=== PATIENT | female | born 2000 | race Caucasian/White ===

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

== ENCOUNTER → 2019-01-13 | Outpatient (CLI) | payer OTHER ==
[~2019-01-13] MED LIST changes: +IBUP1TAB7 PO; +IBUP80TA PO; +OXYC1TAB23 PO
== END ==
LOC: M LAB 07:32
PROVIDERS: ATTEND Advanced Practice Midwife
DX: Z34.83 Encounter for supervision of other normal pregnancy, third trimester (principal); Z3A.00 Weeks of gestation of pregnancy not specified

== ENCOUNTER → 2019-02-10 | Outpatient (REF) | payer OTHER | LOC: M LAB REF 13:11 | PROVIDERS: ATTEND Advanced Practice Midwife | DX: Z36.85 Encounter for antenatal screening for Streptococcus B (principal) ==

== ENCOUNTER → 2019-02-14 | Outpatient (CLI) | payer OTHER ==
[~2019-02-14] MED LIST changes: -IBUP1TAB7 PO; -IBUP80TA PO
== END ==
LOC: M SMT 14:38
PROVIDERS: ATTEND Advanced Practice Midwife
DX: Z34.83 Encounter for supervision of other normal pregnancy, third trimester (principal); Z3A.00 Weeks of gestation of pregnancy not specified

== ENCOUNTER 2019-02-16 01:44 | Outpatient (CLI) | payer OTHER ==
[~2019-02-16] VITALS: Ht 152.4 cm; Wt 83.5 kg
[~2019-02-16 01:44] MED LIST changes: -OXYC1TAB23 PO
[2019-02-16 02:04] VITALS: BP 116/71
[2019-02-16 04:25] VITALS: BP 111/57
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
== END 2019-02-16 05:07 | disposition home or self-care (01) ==
LOC: M LDO 01:44
PROVIDERS: ATTEND Advanced Practice Midwife
DX: O99.89 Other specified diseases and conditions complicating pregnancy, childbirth and the puerperium (principal); R51 Headache; O47.1 False labor at or after 37 completed weeks of gestation; Z3A.37 37 weeks gestation of pregnancy

== ENCOUNTER 2019-02-23 15:58 | Inpatient (IN) | payer OTHER ==
[~2019-02-23] VITALS: Ht 152.4 cm; Wt 84.5 kg
[2019-02-23 16:37] VITALS: BP 116/73
[2019-02-23] MEDS ORDERED: LACTATED RINGER'S 1000 ML IV STA (18:16)
[2019-02-23] MEDS ORDERED: LR 1,000 ML IV SCH ×3 (18:16→22:45)
[2019-02-23 18:28] LABS: HEMATOCRIT 34.2 % (36.0-47.0); HEMOGLOBIN 11.5 g/dl (12.0-15.5); MEAN CORPUSCULAR HEMOGLOBIN 28.2 pg (27.0-33.0); MEAN CORPUSCULAR HGB CONC 33.6 g/dl (32.0-36.5); MEAN CORPUSCULAR VOLUME 83.8 fl (80.0-96.0); PLATELET COUNT, AUTOMATED 263 10^3/uL (150-450); RED BLOOD COUNT 4.08 10^6/uL (4.00-5.40); WHITE BLOOD COUNT 10.5 10^3/uL (4.0-10.0)
[2019-02-23] MEDS ORDERED: BICITRA 30ML SOLN UDC PO ONE (18:30)
[2019-02-23] MEDS ORDERED: ceFAZolin SOD 2 GM in IV 1 EA IV ONE (18:30)
[2019-02-23 18:58] VITALS: BP 131/80
[2019-02-23] MEDS ORDERED: OXYTOCIN INJ 10 UNITS/ML VIAL (J2590) As Ordered ONE ×2 (19:39→19:40)
[2019-02-23] MEDS ORDERED: LIDOCAINE 2% W/EPIN INJ 20ML **PRES FREE As Ordered ONE (19:39)
[2019-02-23] MEDS ORDERED: MORPHINE PRES-FREE INJ 10 MG/10 ML VIAL (J2274) As Ordered ONE (19:50)
[2019-02-23 19:57] VITALS: BP 109/69
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
[2019-02-23] MEDS ORDERED: ONDANSETRON 4MG/2ML VIAL (J2405) As Ordered ONE (21:28)
[2019-02-23] MEDS ORDERED: GLYCOPYRROLATE INJ 0.2 MG/ML 2 ML VIAL As Ordered ONE (21:29)
[2019-02-23] MEDS ORDERED: PHENYLephrine HCL 500 MCG/5 ML (100MCG/ML) SYRINGE (J2370) As Ordered ONE (21:41)
[2019-02-23] MEDS ORDERED: ePHEDrine SULFATE 25 MG/5 ML(5MG/ML) SYRINGE As Ordered ONE (21:41)
[2019-02-23] MEDS ORDERED: KETOROLAC 60 MG/2 ML VIAL (J1885) As Ordered ONE (21:42)
[2019-02-23] MEDS ORDERED: OXYTOCIN 30 UNITS IN 0.9% NaCl 500ML IV BAG (J2590) As Ordered ONE (22:33)
[2019-02-23] MEDS ORDERED: OXYTOCIN DRIP 30 UNITS in IV 1 EA IV SCH (22:44)
[2019-02-23] MEDS ORDERED: METOCLOPRAMIDE INJ 10MG/2ML VIAL (J2765) IV PRN (22:45)
[2019-02-23] MEDS ORDERED: ONDANSETRON 4MG/2ML VIAL (J2405) IV PRN ×2 (22:45→23:30)
[2019-02-23] MEDS ORDERED: RHOGAM 300 MCG (1500 IU) INJ (J2790) IM SCH (22:45)
[2019-02-23] MEDS ORDERED: PERCOCET 5MG/325MG TAB PO PRN ×2 (22:45)
[2019-02-23] MEDS ORDERED: MEASLES,MUMPS,RUBELLA VACCINE INJ (MMR-II) (90707) SC SCH (22:45)
[2019-02-23] MEDS ORDERED: DOCUSATE SODIUM 100 MG CAP PO PRN (22:45)
[2019-02-23] MEDS ORDERED: fentaNYL 100 MCG/2 ML INJECTION (J3010) IV PRN (22:45)
[2019-02-23] MEDS ORDERED: PROMETHAZINE INJ 25 MG/ML VIAL (J2550) IV PRN (22:45)
[2019-02-23] MEDS ORDERED: OXYC1TAB23 PO (22:51)
--- NOTE | 2019-02-23 23:31 | RO ---
DATE OF PROCEDURE: 02/23/2019 PREPROCEDURE DIAGNOSIS: 38-4/7 weeks gestation, labor, prior section. POSTPROCEDURE DIAGNOSIS: 38-4/7 weeks gestation, labor, prior section. PROCEDURE: Repeat low transverse section. SURGEON: Kevon Melvin MD CANNONEER: Cristela Lamar Do ANESTHESIA: Spinal. ESTIMATED BLOOD LOSS: 600 mL. URINE OUTPUT: 100 mL. IV FLUIDS: 900 mL. FINDINGS: 3640 gram, 8 pounds 0 ounce female infant, scores 8 and 9. DESCRIPTION OF PROCEDURE: The patient was taken to the operating room where spinal anesthesia was induced. She was prepped and draped in a sterile fashion in the supine position. A Kumar catheter was placed. A Pfannenstiel skin incision was made with a scalpel, carried through to the fascia. The fascia was nicked and extended. The fascia was dissected off the rectus muscles. The peritoneal cavity was entered. A bladder flap was created. A curvilinear incision was made in the lower uterine segment until clear fluid was noted. This was extended manually. The infant was delivered from the vertex position without difficulty. The cord was doubly clamped and cut. The infant was handed off to awaiting nurses. The placenta was expressed. The uterus was exteriorized and cleared of clots and debris. The uterine incision was closed with #0 Vicryl in a running locked fashion. A second imbricating layer of #0 Vicryl was placed. The uterus was placed back in the abdominal cavity. The peritoneum was closed with #2-0 Vicryl in a running fashion. The fascia was closed with #0 Vicryl in a running fashion. The deep layer was irrigated and closed with #2-0 chromic. The skin was closed with #4-0 Monocryl subcuticular sutures. Sponge, instrument, and needle counts were correct. Cristela Lamar DO assisted throughout the procedure. He helped to create each layer of the incision, as well as the incision of the uterus. He helped expel the fetus and close also some layers.
[2019-02-23] MEDS ORDERED: NALBUPHINE HCL 10 MG/ML AMP (J2300) As Ordered ONE (23:38)
[2019-02-23] MEDS: NALBUPHINE HCL 10 MG/ML AMP (J2300) IV PRN ×2 (23:41→23:46)
[2019-02-24] VITALS (10 sets, daily range): BP systolic 108–118; BP diastolic 57–64
[2019-02-24] MEDS: KETOROLAC 30 MG/ML VIAL (J1885) IV SCH ×3 (04:58→16:33)
[2019-02-24 07:48] LABS: HEMATOCRIT 29.1 % (36.0-47.0); HEMOGLOBIN 9.6 g/dl (12.0-15.5); MEAN CORPUSCULAR HEMOGLOBIN 28.2 pg (27.0-33.0); MEAN CORPUSCULAR VOLUME 85.3 fl (80.0-96.0); PLATELET COUNT, AUTOMATED 200 10^3/uL (150-450); RED BLOOD COUNT 3.41 10^6/uL (4.00-5.40); WHITE BLOOD COUNT 12.5 10^3/uL (4.0-10.0)
[2019-02-24] MEDS ORDERED: INFLUENZA QUADRIVALENT PF VACCINE 0.5ML SYRINGE (90686) IM ONE (09:00)
[2019-02-24] MEDS: PRENATAL VITAMINS CHEWABLE TABLET PO SCH (09:43)
[2019-02-24] MEDS ORDERED: SLF 3 ML SYR IV PRN (10:15)
[2019-02-24] MEDS: SLF 3 ML SYR IV SCH ×2 (14:48→22:59)
[2019-02-24] MEDS: PERCOCET 5MG/325MG TAB PO PRN (20:21)
[2019-02-25] MEDS: IBUPROFEN 800 MG TAB PO SCH ×3 (00:18→17:00)
[2019-02-25] MEDS: PERCOCET 5MG/325MG TAB PO PRN ×5 (00:57→20:28)
[2019-02-25 02:00] VITALS: BP 111/73
[2019-02-25] MEDS ORDERED: diphenhydrAMINE 25 MG CAP PO PRN (05:45)
[2019-02-25 06:00] VITALS: BP 111/72
[2019-02-25] MEDS: SLF 3 ML SYR IV SCH ×2 (06:00→14:00)
[2019-02-25] MEDS ORDERED: IBUP80TA PO (08:09)
--- NOTE | 2019-02-25 08:36 | DSES ---
DATE OF ADMISSION: 02/23/2019 DATE OF DISCHARGE: 02/26/2019 DISCHARGE DIAGNOSIS: Repeat section due to active labor. CONDITION ON DISCHARGE: Stable. PROCEDURES PERFORMED HOSPITAL: 1. Spinal anesthesia. 2. section. HISTORY AND HOSPITAL COURSE: This patient presented in active labor at 38 weeks and 4 days. She expressed desire for repeat section, underwent an uncomplicated section on February 23, 2019. Estimated blood loss was 600 mL. The section was productive of a liveborn female , scores 8 and 9, weight was 8 pounds or 3640 grams. Ms. Ludwig did well after surgery and by postoperative day 3 had met all discharge criteria and was discharged home in stable condition. PHYSICAL EXAMINATION ON DATE OF DISCHARGE: Her vital signs stable. She was afebrile. General appearance was well appearing, no acute distress. Her abdomen was soft, appropriately tender. Her incision was dressed. Extremities were negative for calf tenderness. DISCHARGE MEDICATIONS: - ibuprofen - Percocet DISCHARGE INSTRUCTIONS: 1. She was instructed to followup in two weeks for incision check. 2. Remove her dressing in five days. 3. Report severe pain, heavy vaginal bleeding, fever or incisional issues. SHARMAINE
[2019-02-25] MEDS: PRENATAL VITAMINS CHEWABLE TABLET PO SCH (08:50)
[2019-02-25 18:11] VITALS: BP 105/69
[2019-02-26] MEDS: IBUPROFEN 800 MG TAB PO SCH ×2 (00:57→07:58)
[2019-02-26] MEDS: PERCOCET 5MG/325MG TAB PO PRN ×3 (03:33→11:49)
[2019-02-26 05:47] VITALS: BP 96/51
[2019-02-26] MEDS: PRENATAL VITAMINS CHEWABLE TABLET PO SCH (07:58)
[2019-02-26] MEDS ORDERED: OXYC1TAB23 PO (17:10)
[2019-02-26] MEDS ORDERED: IBUP1TAB7 PO (17:11)
[2019-02-27] MEDS ORDERED: OXYC1TAB23 PO (12:46)
== END 2019-02-26 14:00 | disposition home or self-care (01) | DRG 540 ==
LOC: M LDO 15:58 → M LDI 18:06 → M OBS 02-24 00:15
PROVIDERS: ADMIT Specialist; ATTEND Specialist
PROC: 10D00Z1 Extraction of Products of Conception, Low, Open Approach (ICD-10-PCS; principal; 2019-02-23 19:30)
DX: O34.211 Maternal care for low transverse scar from previous cesarean delivery (principal); O75.82 Onset (spontaneous) of labor after 37 completed weeks of gestation but before 39 completed weeks gestation, with delivery by (planned) cesarean section; Z3A.38 38 weeks gestation of pregnancy; Z37.0 Single live birth

== ENCOUNTER 2020-03-19 22:25 | Emergency (ER) | payer SELFPAY ==
[~2020-03-19] VITALS: Ht 152.4 cm; Wt 78.1 kg
[~2020-03-19 22:25] MED LIST changes: +IBUP1TAB7 PO; +IBUP80TA PO; +OXYC1TAB23 PO
[2020-03-19 22:26] VITALS: BP 117/64
== END 2020-03-20 00:01 | disposition left against medical advice (07) ==
LOC: M ED 22:25
DX: Z53.21 Procedure and treatment not carried out due to patient leaving prior to being seen by health care provider (principal)

== ENCOUNTER 2020-03-28 13:28 | Emergency (ER) | payer MEDICAID, SELFPAY ==
[~2020-03-28] VITALS: Ht 152.4 cm; Wt 76.6 kg
[2020-03-28] MEDS ORDERED: ACETAMINOPHEN TAB 650MG DOSE (2X325MG) PO ONE (14:00)
[2020-03-28] MEDS ORDERED: NS 1,000 ML IV ONE (14:00)
[2020-03-28] MEDS ORDERED: MORPHINE 2 MG/ML 1ML VIAL (J2270) IV ONE (14:00)
[2020-03-28 14:22] LABS: BASO % 0.2 % (0.0-1.0); EOS % 0.1 % (0.0-3.0); HEMATOCRIT 37.2 % (36.0-47.0); HEMOGLOBIN 12.1 g/dl (12.0-15.5); LYMPH # 1.2 10^3/uL (1.5-5.0); LYMPH % 8.1 % (24.0-44.0); MEAN CORPUSCULAR HEMOGLOBIN 28.2 pg (27.0-33.0); MEAN CORPUSCULAR HGB CONC 32.5 g/dl (32.0-36.5); MEAN CORPUSCULAR VOLUME 86.7 fl (80.0-96.0); MONO # 1.4 10^3/uL (0.0-0.8); MONO % 9.6 % (0.0-5.0); NEUTROPHILS # 11.9 10^3/uL (1.5-8.5); NEUTROPHILS % 81.5 % (36.0-66.0); PLATELET COUNT, AUTOMATED 269 10^3/uL (150-450); RED BLOOD COUNT 4.29 10^6/uL (4.00-5.40); WHITE BLOOD COUNT 14.7 10^3/uL (4.0-10.0)
[2020-03-28 14:26] LABS: APPEARANCE, URINE CLOUDY (CLEAR); BACTERIA, URINE AUTO 2+ (NEGATIVE); BILIRUBIN, URINE AUTO NEGATIVE (NEGATIVE); BLOOD, URINE BLOOD 1+ (NEGATIVE); COLOR, URINE YELLOW (YELLOW); GLUCOSE, URINE (UA) AUTO NEGATIVE (NEGATIVE); KETONE, URINE AUTO NEGATIVE (NEGATIVE); LEUKOCYTE ESTERASE, URINE AUTO 3+ (NEGATIVE); MUCUS, URINE SMALL (NEGATIVE); NITRITE, URINE AUTO NEGATIVE (NEGATIVE); PROTEIN, URINE AUTO 1+ mg/dL (NEGATIVE); RBC, URINE AUTO 23 /HPF (0-3); SPECIFIC GRAVITY URINE AUTO 1.004 (1.002-1.035); SQUAMOUS EPITHELIAL CELL UR AU 3 /HPF (0-6); TRANSITIONAL EPITHELIAL AUTO 1 /HPF; UROBILINOGEN, URINE AUTO 0.2 mg/dL (0.0-2.0); WBC, URINE AUTO TNTC /HPF (0-3)
[2020-03-28 15:11] LABS: ALBUMIN 4.2 GM/DL (3.2-5.2); ALT/SGPT 34 U/L (12-78); BILIRUBIN,DIRECT 0.2 MG/DL (0.0-0.2); BILIRUBIN,TOTAL 0.8 MG/DL (0.2-1.0); BLOOD UREA NITROGEN 5 MG/DL (7-18); CALCIUM LEVEL 9.2 MG/DL (8.5-10.1); CARBON DIOXIDE LEVEL 27 MEQ/L (21-32); CHLORIDE LEVEL 105 MEQ/L (98-107); CREATININE FOR GFR 0.77 MG/DL (0.55-1.30); GLUCOSE, FASTING 76 MG/DL (70-100); HCG, SERUM QUANTITATIVE 70053 MIU/ML; LIPASE 47 U/L (73-393); POTASSIUM SERUM 3.1 MEQ/L (3.5-5.1); SODIUM LEVEL 138 MEQ/L (136-145); TOTAL PROTEIN 7.8 GM/DL (6.4-8.2)
[2020-03-28] MEDS ORDERED: MORPHINE 4 MG/ML 1ML VIAL/SYRINGE (J2270) IV ONE (15:30)
[2020-03-28] MEDS ORDERED: POTASSIUM CHLORIDE 10 MEQ SR TABLET PO ONE (15:45)
[2020-03-28 16:12] LABS: CHLAMYDIA DNA AMPLIFICATION NEGATIVE (NEGATIVE); GC DNA AMPLIFICATION NEGATIVE (NEGATIVE)
--- NOTE | 2020-03-28 16:55 | REP ---
INDICATION: abd pain preg eval for IUP. COMPARISON: None. TECHNIQUE: Real-time sonographic evaluation of gravid uterus performed. FINDINGS: Intrauterine viable diamniotic dichorionic twin gestation is noted. Fetus a: [place]-rump length 8 mm corresponds to 6 weeks 6 days gestational age. heart rate is 122 beats per minute. Fetus B: [place]-rump length 7 mm corresponds to 6 weeks 4 days gestational age. heart rate 129 beats per minute. There is no subchorionic hemorrhage. Complex cystic structure right ovary probably represents a corpus luteum with a maximum diameter of 1.9 cm. IMPRESSION: Viable diamniotic dichorionic twin gestation as above. <Electronically signed by Supa Macias > 03/28/20 [id number]
[2020-03-28] MEDS ORDERED: KEFL500C17 PO (17:56)
[2020-03-28] MEDS ORDERED: FLAG500T PO (17:57)
[2020-03-28] MEDS ORDERED: metroNIDAZOLE (FLAGYL) 500MG TABLET PO ONE (18:00)
[2020-03-28] MEDS ORDERED: CEPHALEXIN 500 MG CAP PO ONE (18:00)
[2020-03-28 18:10] VITALS: BP 111/82
== END 2020-03-28 18:16 | disposition home or self-care (01) ==
LOC: M ED 13:28
DX: O23.01 Infections of kidney in pregnancy, first trimester (principal); O23.591 Infection of other part of genital tract in pregnancy, first trimester; O98.511 Other viral diseases complicating pregnancy, first trimester; B34.8 Other viral infections of unspecified site; B34.0 Adenovirus infection, unspecified; O30.001 Twin pregnancy, unspecified number of placenta and unspecified number of amniotic sacs, first trimester; Z3A.01 Less than 8 weeks gestation of pregnancy; Z88.5 Allergy status to narcotic agent
CPT/HCPCS: 36415; 76801; 76802; 80048; 80076; 81001; 83690; 84702; 85025; 86850; 86900; 86901; 87040; 87088; 87186; 87210; 87486; 87491; 87581; 87591; 87633; 87798; 93041; 96361; 96374; 96376; 99284; J2270

== ENCOUNTER 2020-03-31 15:27 | Emergency (ER) | payer MEDICAID, SELFPAY ==
[~2020-03-31] VITALS: Ht 149.9 cm; Wt 74.7 kg
[~2020-03-31 15:27] MED LIST changes: +FLAG500T PO; +KEFL500C17 PO
[2020-03-31 15:59] LABS: BASO % 0.5 % (0.0-1.0); EOS % 0.3 % (0.0-3.0); HEMATOCRIT 35.4 % (36.0-47.0); HEMOGLOBIN 11.5 g/dl (12.0-15.5); LYMPH # 1.4 10^3/uL (1.5-5.0); LYMPH % 22.1 % (24.0-44.0); MEAN CORPUSCULAR HEMOGLOBIN 27.9 pg (27.0-33.0); MEAN CORPUSCULAR HGB CONC 32.5 g/dl (32.0-36.5); MEAN CORPUSCULAR VOLUME 85.9 fl (80.0-96.0); MONO # 0.7 10^3/uL (0.0-0.8); MONO % 11.7 % (0.0-5.0); NEUTROPHILS # 4.1 10^3/uL (1.5-8.5); NEUTROPHILS % 65.2 % (36.0-66.0); PLATELET COUNT, AUTOMATED 276 10^3/uL (150-450); RED BLOOD COUNT 4.12 10^6/uL (4.00-5.40); WHITE BLOOD COUNT 6.3 10^3/uL (4.0-10.0)
[2020-03-31] MEDS ORDERED: NS 1,000 ML IV ONE (16:30)
[2020-03-31] MEDS ORDERED: METOCLOPRAMIDE INJ 10MG/2ML VIAL (J2765 PER 1) IV ONE (16:30)
[2020-03-31] MEDS ORDERED: cefTRIAXone SOD 1 GM in D5W MINI-BAG PLUS 50 ML IV ONE (16:30)
[2020-03-31 17:05] LABS: ERYTHROCYTE SEDIMENTATION RATE 52 mm/hr (0-20)
[2020-03-31 17:13] LABS: ALBUMIN 3.8 GM/DL (3.2-5.2); BILIRUBIN,DIRECT 0.2 MG/DL (0.0-0.2); BILIRUBIN,TOTAL 0.4 MG/DL (0.2-1.0); TOTAL PROTEIN 7.5 GM/DL (6.4-8.2)
[2020-03-31 17:32] LABS: C REACTIVE PROTEIN QUANTITATIV 6.24 MG/DL (0.00-0.30)
[2020-03-31] MEDS ORDERED: REGL10TA6 PO (18:19)
[2020-03-31 18:26] VITALS: BP 147/65
== END 2020-03-31 18:28 | disposition home or self-care (01) ==
LOC: M ED 15:27
DX: O23.01 Infections of kidney in pregnancy, first trimester (principal); O21.9 Vomiting of pregnancy, unspecified; O99.331 Smoking (tobacco) complicating pregnancy, first trimester; F17.210 Nicotine dependence, cigarettes, uncomplicated; Z88.6 Allergy status to analgesic agent; Z79.2 Long term (current) use of antibiotics; Z3A.00 Weeks of gestation of pregnancy not specified
CPT/HCPCS: 36415; 80047; 80076; 81001; 83605; 83690; 84702; 85025; 85652; 86140; 87040; 87086; 96365; 96375; 99284; J0696; J2765

== ENCOUNTER 2020-04-25 02:27 | Inpatient (IN) | payer MEDICAID, SELFPAY ==
[~2020-04-25] VITALS: Ht 149.9 cm; Wt 72.6 kg
[~2020-04-25 02:27] MED LIST changes: +REGL10TA6 PO
[2020-04-25] MEDS ORDERED: ACET300T47 PO ×2 (02:33→06:51)
[2020-04-25] MEDS ORDERED: GABA-843 PO (02:33)
[2020-04-25] MEDS ORDERED: [UNRECOGNIZED DRUG - OTHER] (02:49)
[2020-04-25] MEDS ORDERED: MISO100T22 PO (02:49)
[2020-04-25] MEDS ORDERED: ACETAMINOPHEN TAB 650MG DOSE (2X325MG) PO ONE (05:00)
[2020-04-25] MEDS ORDERED: NS 1,000 ML IV ONE (05:00)
[2020-04-25 05:13] LABS: BASO % 0.2 % (0.0-1.0); EOS % 0.2 % (0.0-3.0); HEMATOCRIT 35.8 % (36.0-47.0); HEMOGLOBIN 11.8 g/dl (12.0-15.5); LYMPH # 1.3 10^3/uL (1.5-5.0); LYMPH % 10.1 % (24.0-44.0); MEAN CORPUSCULAR HEMOGLOBIN 28.2 pg (27.0-33.0); MEAN CORPUSCULAR VOLUME 85.6 fl (80.0-96.0); MONO # 1.5 10^3/uL (0.0-0.8); NEUTROPHILS # 10.4 10^3/uL (1.5-8.5); PLATELET COUNT, AUTOMATED 208 10^3/uL (150-450); RED BLOOD COUNT 4.18 10^6/uL (4.00-5.40); WHITE BLOOD COUNT 13.3 10^3/uL (4.0-10.0)
[2020-04-25 05:39] LABS: ALBUMIN 3.4 GM/DL (3.2-5.2); ALT/SGPT 18 U/L (12-78); BILIRUBIN,DIRECT 0.2 MG/DL (0.0-0.2); BILIRUBIN,TOTAL 0.6 MG/DL (0.2-1.0); BLOOD UREA NITROGEN 4 MG/DL (7-18); CALCIUM LEVEL 8.8 MG/DL (8.5-10.1); CARBON DIOXIDE LEVEL 26 MEQ/L (21-32); CHLORIDE LEVEL 103 MEQ/L (98-107); CREATININE FOR GFR 0.63 MG/DL (0.55-1.30); GLUCOSE, FASTING 106 MG/DL (70-100); LIPASE 58 U/L (73-393); POTASSIUM SERUM 3.2 MEQ/L (3.5-5.1); SODIUM LEVEL 136 MEQ/L (136-145); TOTAL PROTEIN 7.1 GM/DL (6.4-8.2)
--- NOTE | 2020-04-25 06:07 | REPVR ---
PROCEDURE INFORMATION: Exam: US Pelvis Complete, Transabdominal and US Duplex Artery or Vein, Ovaries, Limited Exam date and time: 04/25/2020 5:53 AM Age: 19 years old Clinical indication: Pelvic pain; Patient HX: No quant done today; Additional info: Ab on Wednesday, cramping/fevers TECHNIQUE: Imaging protocol: Real-time transabdominal pelvic ultrasound with image documentation. Real-time duplex ultrasound scan of the arterial or venous flow of the ovaries with B-mode, color Doppler flow and spectral waveform analysis. Complete Pelvis, Limited Duplex. COMPARISON: US OBS FOLL UP OR REPEAT EACH GES 11/03/2018 11:44 AM FINDINGS: Uterus/cervix: The uterus measures 15.4 x 9.0 x 6.5 cm. No focal uterine mass is seen. The endometrium is thickened and heterogeneous measuring 2.3 centimetres. There is minimal vascularity in the posterior aspect of the endometrium on the right. Right adnexa: The right ovary measures 3.2 x 3.1 x 2.1 cm and appears grossly unremarkable. Arterial blood flow seen to the right ovary with peak systolic velocity of 32.7 centimeter/second and resistive index of 0.53. Left adnexa: The left ovary was not visualized. Free fluid: None. Bladder: Normal. IMPRESSION: 1. Thickened and heterogeneous endometrium with minimal vascularity. Findings could represent blood clots and or retained products of conception. 2. Normal right ovary with no right ovarian torsion. Left ovary not visualized. Please note patient refused transvaginal pelvic ultrasound. Electronically signed by: Farshad Velez On 04/25/2020 06:07:13 AM
[2020-04-25 06:40] LABS: HCG, SERUM QUANTITATIVE 30728 MIU/ML
[2020-04-25] MEDS ORDERED: IBUP1TAB7 PO (06:51)
[2020-04-25] MEDS ORDERED: PIPERACILLIN/TAZOBACTAM SOD 3.375 GM in D5W MINI-BAG PLUS 50 ML IV ONE (07:00)
[2020-04-25] MEDS ORDERED: LIDOCAINE 1% SDV 30ML VIAL As Ordered ONE (07:36)
[2020-04-25] MEDS ORDERED: SILVER NITRATE APPLICATOR As Ordered ONE (07:36)
[2020-04-25] MEDS ORDERED: LIDOCAINE 2% 100MG/5ML SDV (FOR ANES.) As Ordered ONE (07:59)
[2020-04-25] MEDS ORDERED: MIDAZOLAM INJ 2MG/2ML VIAL (J2250 PER 1MG) As Ordered ONE (07:59)
[2020-04-25] MEDS ORDERED: dexameTHASONE 4 MG/ML 1ML VIAL (J1100 PER 1MG) As Ordered ONE (07:59)
[2020-04-25] MEDS ORDERED: ROCURONIUM BROMIDE 50 MG/5 ML VIAL As Ordered ONE (07:59)
[2020-04-25] MEDS ORDERED: fentaNYL 100 MCG/2 ML INJECTION (J3010) As Ordered ONE (07:59)
[2020-04-25] MEDS ORDERED: propofoL 200 MG/20 ML VIAL As Ordered ONE (07:59)
[2020-04-25] MEDS ORDERED: ONDANSETRON 4MG/2ML VIAL As Ordered ONE (07:59)
[2020-04-25] MEDS ORDERED: ONDANSETRON 4MG/2ML VIAL IV PRN ×2 (08:00→09:00)
[2020-04-25] MEDS ORDERED: KETOROLAC 60MG 2ML VIAL As Ordered ONE (08:12)
[2020-04-25] MEDS ORDERED: METHYLERGONOVINE MALEATE 0.2 MG/ML VIAL (J2210) As Ordered ONE (08:16)
[2020-04-25] MEDS ORDERED: fentaNYL 100 MCG/2 ML INJECTION (J3010) IV PRN (09:00)
[2020-04-25] MEDS ORDERED: LR 1,000 ML IV SCH (09:00)
[2020-04-25] MEDS ORDERED: PERCOCET 5MG/325MG TAB PO PRN (09:00)
[2020-04-25] MEDS ORDERED: METOCLOPRAMIDE INJ 10MG/2ML VIAL (J2765 PER 1) IV PRN (09:00)
--- NOTE | 2020-04-25 09:24 | RO ---
OPERATIVE NOTE DATE OF OPERATION: 04/25/2020 INDICATIONS FOR OPERATION: Liv is a 19-year-old G7, now P2,0,5,2 who presented to the ER with fever and pelvic abdominal pain with stated history of having medically-induced via [facility] on Wednesday, earlier in the week, and having had heavy bleeding and passage of tissue but then developing fever one day prior and the pain slowly developing with time since yesterday as well. In the ER she was noted to have elevated white count to 13.3. She had fundal tenderness. Lactic acid was only 0.8 but concern was for septic given the ultrasound findings with a small area at the posterior aspect of the uterus showing increased vascularity. She was counseled and consented for suction dilatation and curettage and will need to remain in the hospital for IV antibiotics for 48 hours, afebrile. PREOPERATIVE DIAGNOSIS: Septic . POSTOPERATIVE DIAGNOSIS: Septic . MATERIAL FORWARDED TO LAB FOR EXAMINATION: Products of conception, also requested anaerobic and aerobic cultures for the products of conception. DESCRIPTION OF FINDINGS: Uterus sounded to 9 cm, enlarged globally, soft by palpation. Cervix was only slightly dilated but there was a small amount of blood and tissue extracted from the uterus. INFECTION CLASSIFICATION: 4. ESTIMATED BLOOD LOSS: 25 mL. IV FLUIDS: 800 mL lactated Ringer's. URINE OUTPUT: Not measured. OPERATION PERFORMED: Suction dilatation and curettage. DESCRIPTION OF OPERATION: After obtaining informed consent the patient was taken to the OR where she underwent general endotracheal anesthesia. She was placed in low lithotomy position and the perineum and vagina were prepped and draped in sterile normal fashion. She had received a dose of Zosyn IV in the ER prior to the operation and she will be continued on Zosyn after. The speculum was inserted into the vagina and cervix was noted. The anterior segment was grasped with single tooth tenaculum, uterus sounded to 9 cm. Cervix was sequentially dilated using Hanks dilators. A 7 mm suction curet was introduced to the fundus of the uterus very gently. Suction was activated and approximately 4-5 passes of suction curettage were used to remove the intrauterine contents. The first pass seemed to be productive of tissue although hard to discern from clot. The second pass retrieved some bright red bleeding but there were also pieces of black firm maybe old clot versus tissue and then 2-3 more passes of the curet were used and only bright red bleeding was noted at that point. I removed the suction curet and removed the tenaculum, removed the speculum and performed bimanual massage and there was no bleeding whatsoever but I had anesthesia give her dose of I.M. Methergine to prevent any future buildup of bleeding within the uterus. There was no bleeding from the tenaculum site on re-inspection. Boone speculum was removed again. The patient was awakened from general anesthesia in good condition. She was transferred to the recovery room. All counts were correct x2.
[2020-04-25] MEDS: NS 1,000 ML IV SCH ×3 (09:50→20:16)
[2020-04-25 09:53] VITALS: BP 112/59
[2020-04-25 12:25] LABS: BASO % 0.1 % (0.0-1.0); HEMATOCRIT 34.5 % (36.0-47.0); HEMOGLOBIN 11.4 g/dl (12.0-15.5); LYMPH # 0.7 10^3/uL (1.5-5.0); LYMPH % 5.4 % (24.0-44.0); MEAN CORPUSCULAR VOLUME 87.8 fl (80.0-96.0); MONO # 0.6 10^3/uL (0.0-0.8); MONO % 4.7 % (0.0-5.0); NEUTROPHILS # 11.6 10^3/uL (1.5-8.5); NEUTROPHILS % 89.3 % (36.0-66.0); PLATELET COUNT, AUTOMATED 177 10^3/uL (150-450); RED BLOOD COUNT 3.93 10^6/uL (4.00-5.40)
[2020-04-25] MEDS ORDERED: PIPERACILLIN/TAZOBACTAM SOD 3.375 GM in D5W MINI-BAG PLUS 50 ML IV SCH (13:00)
[2020-04-25 13:51] VITALS: BP 106/61
[2020-04-25] MEDS: PIPERACILLIN/TAZOBACTAM SOD 3.375 GM in D5W MINI-BAG PLUS 50 ML IV SCH ×2 (14:30→20:16)
[2020-04-25] MEDS: ACETAMINOPHEN TAB 650MG DOSE (2X325MG) PO PRN ×2 (14:31→21:41)
[2020-04-25 17:53] VITALS: BP 100/54
[2020-04-25 20:00] VITALS: BP 95/62
[2020-04-25] MEDS: KETOROLAC 30 MG/ML 1ML VIAL IV PRN (20:18)
[2020-04-26] VITALS: BP 106/59
[2020-04-26] MEDS: KETOROLAC 30 MG/ML 1ML VIAL IV PRN ×2 (02:03→08:11)
[2020-04-26] MEDS ORDERED: MORPHINE 4 MG/ML 1ML VIAL/SYRINGE (J2270) IV ONE ×2 (02:45→11:00)
[2020-04-26] MEDS: PIPERACILLIN/TAZOBACTAM SOD 3.375 GM in D5W MINI-BAG PLUS 50 ML IV SCH ×2 (02:57→08:09)
[2020-04-26 04:30] VITALS: BP 105/52
--- NOTE | 2020-04-26 07:56 | IPNPDOC ---
Text Note Date of Service The patient was seen on 04/26/20. NOTE S: 19yo s/p D&C for septic abortions. Did well yesterday. Has been afebrile for 24hrs. Had increase in pain this morning and required morphine. UA/UC hasnt been seen that was ordered yesterday morning. O: vss, AF gen: well appearing abd: soft, mildly tender ext: neg calf tenderness A/P: 19yo s/p D&C for septic -afebrile 24hrs h/o recent pyelonephritis - UA/UC pending -re-evaluation later today for possible discharge Patty Coello MD VS,Luz, I+O VS, Luz I+O Laboratory Tests 04/25/20 12:02 Vital Signs Date Time Temp Pulse Resp B/P (MAP) Pulse Ox O2 Delivery O2 Flow Rate FiO2 04/26/20 04:30 97.0 50 18 105/52 (69) 99 04/26/20 03:08 Room Air 04/25/20 08:50 2 I&O- Last 24 Hours up to 6 AM 04/26/20 06:00 Intake Total 2790 ml Output Total 475 ml Balance 2315 ml PATTY COELLO MD. Apr 26, 2020 07:55
[2020-04-26 10:00] VITALS: BP 109/58
[2020-04-26 11:41] LABS: AMORPHOUS SEDIMENT SMALL (NEGATIVE); APPEARANCE, URINE CLOUDY (CLEAR); BACTERIA, URINE AUTO 1+ (NEGATIVE); BILIRUBIN, URINE AUTO NEGATIVE (NEGATIVE); BLOOD, URINE BLOOD 2+ (NEGATIVE); COLOR, URINE YELLOW (YELLOW); GLUCOSE, URINE (UA) AUTO NEGATIVE (NEGATIVE); KETONE, URINE AUTO NEGATIVE (NEGATIVE); LEUKOCYTE ESTERASE, URINE AUTO 1+ (NEGATIVE); MUCUS, URINE SMALL (NEGATIVE); NITRITE, URINE AUTO NEGATIVE (NEGATIVE); PROTEIN, URINE AUTO 1+ mg/dL (NEGATIVE); RBC, URINE AUTO 42 /HPF (0-3); SPECIFIC GRAVITY URINE AUTO 1.032 (1.002-1.035); SQUAMOUS EPITHELIAL CELL UR AU 15 /HPF (0-6); WBC, URINE AUTO 18 /HPF (0-3)
--- NOTE | 2020-04-26 12:20 | IPNPDOC ---
Text Note Date of Service The patient was seen on 04/26/20. NOTE Requested to eval patient for RUQ pain Pt is a 19yo s/p D&C on 04/25 for septic diagnosed based on fever, pelvic pain, elevated WBC count, and possibility of retained products on TVUS. Has been on zosyn since presented to the ER. She has minimal cramping and bleeding since D&C. Has had some intermittent abdominal pains- she is not sure if they are related to gas pains or not. She admits prior to admission she had lost 20lb from intense nausea/vomiting related to the and her eating habits have not normalized. She ate [employer] yesterday and had RUQ pain afterwards, begging the question of whether it was related to gallbladder since greasy. However, she has never had similar pain prior to admission. Received a dose of 2mg IV morphine last night for that pain episode and again this morning. She ate small breakfast. Has had 3 small bowel movements since yesterday. Overall she feels ok. She has had no n/v/f/c. Afebrile since 0500 yesterday. Vitals wnl Gen: WDWN, sitting up in bed in NAD Abdomen: soft, non-distended, very minimal TTP in RUQ with NO rebound/guarding Extremities: no edema of BLE Labs: H/H 11.4/34.5, plt 177 K 3.2 (slightly low)- yesterday Covid testing negative G/C DNA pending urine culture pending (UA contaminated) blood culture x2 pending products of conception aerobic and anaerobic cultures pending Assessment: Pt is a 19yo s/p D&C on 04/25 for septic with 2 episodes of RUQ pain, but none previous. It is possible it is related to gallbladder, but more likely gas pains given her irregular eating habits recently. Afebrile since 0500 yesterday receiving zosyn. Benign exam with very minimal TTP in RUQ. Plan: -Patient previously discussed discharge home today with Dr. Coello and she is waiting to see how she feels this afternoon -Will repeat CMP since K low yesterday, suspect it has normalized since she is eating now -Discussed minimizing/avoiding greasy foods in diet. If she continues to have episodes of pain, she should re-present to primary physician and can be worked u p for gallbladder as etiology if there is recurrence Morenita Cloud MD VS,Luz, I+O VSLuz I+O Vital Signs Date Time Temp Pulse Resp B/P (MAP) Pulse Ox O2 Delivery O2 Flow Rate FiO2 04/26/20 11:03 16 04/26/20 10:00 97.9 61 109/58 (75) 99 Room Air 04/25/20 08:50 2 I&O- Last 24 Hours up to 6 AM 04/26/20 06:00 Intake Total 2790 ml Output Total 475 ml Balance 2315 ml Morenita Cloud MD Apr 26, 2020 12:20
[2020-04-26 13:13] LABS: CHLAMYDIA DNA AMPLIFICATION NEGATIVE (NEGATIVE); GC DNA AMPLIFICATION NEGATIVE (NEGATIVE)
[2020-04-26 13:17] LABS: ALBUMIN 2.6 GM/DL (3.2-5.2); ALT/SGPT 13 U/L (12-78); BILIRUBIN,TOTAL 0.4 MG/DL (0.2-1.0); BLOOD UREA NITROGEN 6 MG/DL (7-18); CARBON DIOXIDE LEVEL 24 MEQ/L (21-32); CHLORIDE LEVEL 112 MEQ/L (98-107); CREATININE FOR GFR 0.54 MG/DL (0.55-1.30); GLUCOSE, FASTING 94 MG/DL (70-100); POTASSIUM SERUM 2.9 MEQ/L (3.5-5.1); SODIUM LEVEL 143 MEQ/L (136-145); TOTAL PROTEIN 5.9 GM/DL (6.4-8.2)
--- NOTE | 2020-04-26 13:35 | DS.PDOC ---
Discharge Summary General Date of Admission Apr 25, 2020 at 07:59 Date of Discharge 04/26/2020 Attending Physician: Morenita Cloud MD Discharge Summary PROCEDURES PERFORMED DURING STAY Suction D&C. ADMITTING DIAGNOSES: 1. Septic . DISCHARGE DIAGNOSES: 1. Postop D&C. COMPLICATIONS/CHIEF COMPLAINT: With Septicemia. HISTORY OF PRESENT ILLNESS: 19yo presented to ED 04/25/2020 following a medically induced on Wednesday. Complaints were fever and pain. HOSPITAL COURSE: Suction D&C performed by Dr Cloud on 04/25/2020. Ms Ludwig has been afebrile over 24 hours and desires discharge. DISCHARGE MEDICATIONS: Please see below. ALLERGIES: Please see below. PHYSICAL EXAMINATION ON DISCHARGE: VITAL SIGNS: Please see below. GENERAL: No distress HEENT: WNL NECK: Supple CARDIOVASCULAR EXAMINATION: HRR, normotensive RESPIRATORY EXAMINATION: Clear and unlabored ABDOMINAL EXAMINATION: Flat, nontender EXTREMITIES: Equal strength and motion SKIN: Intact NEUROLOGICAL EXAMINATION: Grossly intact PSYCHIATRIC EXAMINATION: Appropriate LABORATORY DATA: Please see below. PROGNOSIS: Good ACTIVITY: As tolerated. Pelvic rest DIET: As tolerated DISCHARGE PLAN: Discharge home per consult Dr Cloud. DISPOSITION: Home. DISCHARGE INSTRUCTIONS: 1. Pelvic rest. Tylenol/ibuprofen as needed for discomfort. 2. Make appt to see Dr Cloud next week. 3. Call with fever, increased pain, increased bleeding, foul lochia ITEMS TO FOLLOWUP ON ON OUTPATIENT: 1. Cultures are pending DISCHARGE CONDITION: Stable TIME SPENT ON DISCHARGE: Greater than 10 minutes. Vital Signs/I&Os Vital Signs Date Time Temp Pulse Resp B/P (MAP) Pulse Ox O2 Delivery O2 Flow Rate FiO2 04/26/20 11:30 16 04/26/20 10:00 97.9 61 109/58 (75) 99 Room Air 04/25/20 08:50 2 I&O- Last 24 Hours up to 6 AM 04/26/20 06:00 Intake Total 2790 ml Output Total 475 ml Balance 2315 ml Laboratory Data Labs 24H Laboratory Tests 2 04/26/20 11:14: Urine Color YELLOW, Urine Appearance CLOUDYH, Urine pH 6.0, Urine Specific [place] 1.032, Urine Protein 1+H, Urine Glucose (Auto)(UA) NEGATIVE, Urine Ketones (Auto) NEGATIVE, Urine Blood 2+H, Urine Nitrite NEGATIVE, Urine Bilirubin NEGATIVE, Urine Urobilinogen 4.0H, Urine Leukocyte Esterase (Auto) 1+H, Urine WBC (Auto) 18H, Urine RBC (Auto) 42H, Urine Hyaline Casts (Auto) 0, Urine Bacteria (Auto) 1+H, Urine Squamous Epithelial Cells 15, Urine Amorphous Sediment (Auto) SMALLH, Urine Mucus (Auto) SMALL, Urine Sperm (Auto) , Chlamydia trachomatis DNA (GIAN) NEGATIVE, Neisseria gonorrhoeae DNA (GIAN) NEGATIVE 04/26/20 12:29: Anion Gap 7L, Calcium Level 8.0L, Total Bilirubin 0.4, Aspartate Amino Transf (AST/SGOT) 5L, Alanine Aminotransferase (ALT/SGPT) 13, Alkaline Phosphatase 64, Total Protein 5.9L, Albumin 2.6#L, Albumin/Globulin Ratio 0.8L CBC/BMP Laboratory Tests 04/26/20 12:29 Microbiology Microbiology 04/26/20 Urine Culture, Received Pending 04/25/20 Gram Stain - Final, Resulted 04/25/20 Wound Culture, Resulted Pending 04/25/20 Anaerobic Culture, Resulted Pending 04/25/20 Blood Culture - Preliminary, Resulted No growth after 24 hours . All specim... 04/25/20 Blood Culture - Preliminary, Resulted No growth after 24 hours . All specim... Discharge Medications Scheduled PRN Acetaminophen with Codeine (Acetaminophen-Cod #3 Tablet) 1 Each Tablet, 2 TAB PO Q4H PRN for PAIN / FEVER, (Reported) Ibuprofen (Ibuprofen) 800 Mg Tablet, 800 MG PO TID PRN for PAIN, (Reported) Allergies Coded Allergies: meperidine (Verified Adverse Reaction, Unknown, VOMITING, 04/25/20) Toña Mistry CNM Apr 26, 2020 13:35
[2020-04-26] MEDS ORDERED: DOXYCYCLINE HYCLATE 100MG TABLET PO SCH (14:00)
[2020-04-26] MEDS ORDERED: DOXY-350 PO (14:01)
== END 2020-04-26 14:14 | disposition home or self-care (01) | DRG 544 ==
LOC: M ED 02:27 → M ED INP 07:59 → M OBS 09:46
PROVIDERS: ADMIT Obstetrics & Gynecology; ATTEND Obstetrics & Gynecology
PROC: 10D17ZZ Extraction of Products of Conception, Retained, Via Natural or Artificial Opening (ICD-10-PCS; principal; 2020-04-25 07:26)
DX: O07.37 Sepsis following failed attempted termination of pregnancy (principal); Z88.8 Allergy status to other drugs, medicaments and biological substances